=== PATIENT | male | born 1955 | race African-American/Black ===

== ENCOUNTER 2020-03-14 16:58 | Emergency (ER) | payer MEDICAID ==
[~2020-03-14] VITALS: Ht 175.3 cm; Wt 85.0 kg
[~2020-03-14 16:58] MED LIST: no home meds per pt
[2020-03-14 16:59] VITALS: BP 140/84
[2020-03-14] MEDS ORDERED: VISCOUS LIDOCAINE 2% 15 ML UDC PO ONE (17:45)
[2020-03-14] MEDS ORDERED: LIDOCAINE HCL/PF 1% 10 MG/ML 5ML VIAL IJ ONE (17:45)
[2020-03-14] MEDS ORDERED: AMOXICILLIN/POTASSIUM CLAVULANATE 500/125MG TAB PO ONE (18:15)
== END 2020-03-14 18:23 | disposition home or self-care (01) ==
LOC: ER 16:58
DX: K05.319 Chronic periodontitis, localized, unspecified severity (principal); E78.00 Pure hypercholesterolemia, unspecified; I10 Essential (primary) hypertension; Z98.890 Other specified postprocedural states
CPT/HCPCS: 99283; J3490

== ENCOUNTER 2022-02-09 11:23 | Inpatient (IN) | payer MEDICARE, MEDICAID ==
[~2022-02-09] VITALS: Ht 170.2 cm; Wt 83.9 kg
[2022-02-09 12:34] LABS: BASOPHILS % 0.7 % (0.0-2.0); EOSINOPHILS % 0.9 % (0.0-5.0); HEMATOCRIT. 45.2 % (42.0-52.0); HEMOGLOBIN. 15.1 g/dL (14.0-18.0); LYMPHOCYTES % 44.9 % (20.0-50.0); MEAN CORPUSCULAR HEMOGLOBIN 32.4 pg (28.0-32.0); MEAN CORPUSCULAR VOLUME 97.1 fL (80.0-94.0); MEAN PLATELET VOLUME 7.4 fl (7.4-10.4); MONOCYTES % 7.2 % (2.0-8.0); NEUTROPHILS % 46.3 % (40.0-76.0); RED BLOOD CELL COUNT 4.66 mill/uL (4.7-6.1); RED CELL DISTRIBUTION WIDTH 14.5 % (11.6-14.6)
[2022-02-09 12:35] LABS: PLATELET 202 x1000/uL (130-400)
[2022-02-09 12:47] LABS: CHLORIDE 111 mEq/L (98-107)
[2022-02-09 12:56] LABS: ETHANOL BLOOD < 10 mg/dL
[2022-02-09] MEDS: AMLODIPINE 10MG TABLET PO SCH (13:00)
[2022-02-09] MEDS ORDERED: GUAIFENESIN 200MG/10ML SUGAR FREE UDC PO PRN (13:00)
[2022-02-09] MEDS ORDERED: TRAMADOL 50MG TABLET PO PRN (13:00)
[2022-02-09] MEDS ORDERED: ACETAMINOPHEN 325MG TABLET PO PRN (13:00)
[2022-02-09] MEDS ORDERED: ONDANSETRON HCL 4MG/2ML INJ IV PRN (13:00)
[2022-02-09] MEDS ORDERED: DOCUSATE SODIUM 100MG CAPSULE PO PRN (13:00)
[2022-02-09] MEDS ORDERED: MAGNESIUM/ALUMINUM HYDROXIDE/SIMETHICONE 30ML UDC PO PRN (13:00)
[2022-02-09] MEDS ORDERED: NALOXONE HCL 0.4MG/ML VIAL IV PRN (13:45)
[2022-02-09] MEDS: ENOXAPARIN 40MG/0.4ML SYR SUBCUT SCH (14:00)
[2022-02-09 15:24] LABS: PROTHROMBIN TIME 11.2 sec (9.6-11.0)
[2022-02-09 20:30] VITALS: BP 107/65
[2022-02-09 20:40] VITALS: BP 107/65
[2022-02-10] VITALS: BP 140/66
[2022-02-10 07:58] VITALS: BP 119/74
[2022-02-10] MEDS: AMLODIPINE 10MG TABLET PO SCH (09:03)
[2022-02-10 12:00] VITALS: BP 127/80
[2022-02-10] MEDS: ENOXAPARIN 40MG/0.4ML SYR SUBCUT SCH (13:53)
[2022-02-10 15:02] VITALS: BP 129/60
== END 2022-02-10 15:45 | disposition home or self-care (01) | DRG 52 ==
LOC: ER 11:23 → 8WST 14:43
PROVIDERS: ADMIT Hospitalist; ATTEND Hospitalist
PROC: 5A1935Z Respiratory Ventilation, Less than 24 Consecutive Hours (ICD-10-PCS; principal; 2022-02-09)
DX: G93.41 Metabolic encephalopathy (principal); F29 Unspecified psychosis not due to a substance or known physiological condition; R47.81 Slurred speech; F70 Mild intellectual disabilities; E78.00 Pure hypercholesterolemia, unspecified; Z20.822 Contact with and (suspected) exposure to COVID-19; I10 Essential (primary) hypertension; K59.00 Constipation, unspecified; F17.210 Nicotine dependence, cigarettes, uncomplicated; Z86.73 Personal history of transient ischemic attack (TIA), and cerebral infarction without residual deficits
CPT/HCPCS: 36415; 70551; 71045; 80053; 80320; 84484; 85025; 87426; 93970; 97162; 99285; C9803; J1650; G0480

== ENCOUNTER 2022-09-03 11:32 | Emergency (ER) | payer MEDICARE, MEDICAID ==
[~2022-09-03] VITALS: Ht 170.2 cm; Wt 85.0 kg
[2022-09-03 12:32] LABS: BASOPHILS % 0.6 % (0.0-2.0); EOSINOPHILS % 0.5 % (0.0-5.0); HEMATOCRIT. 42.8 % (42.0-52.0); HEMOGLOBIN. 14.9 g/dL (14.0-18.0); LYMPHOCYTES % 36.3 % (20.0-50.0); MEAN CORPUSCULAR HEMOGLOBIN 33.3 pg (28.0-32.0); MEAN CORPUSCULAR VOLUME 95.7 fL (80.0-94.0); MEAN PLATELET VOLUME 6.7 fl (7.4-10.4); MONOCYTES % 8.4 % (2.0-8.0); NEUTROPHILS % 54.2 % (40.0-76.0); PLATELET 213 x1000/uL (130-400); RED BLOOD CELL COUNT 4.47 mill/uL (4.7-6.1); RED CELL DISTRIBUTION WIDTH 14.2 % (11.6-14.6)
[2022-09-03 12:42] LABS: CHLORIDE 107 mEq/L (98-107)
[2022-09-03 12:51] LABS: ETHANOL BLOOD < 10 mg/dL (-10)
[2022-09-03 13:59] LABS: CLARITY URINE CLEAR (CLEAR); COLOR URINE DARK YELLOW (YELLOW); KETONES URINE TRACE (NEGATIVE); LEUKOCYTE ESTERASE URINE NEGATIVE (NEGATIVE); NITRITE URINE NEGATIVE (NEGATIVE); OCCULT BLOOD URINE NEGATIVE (NEGATIVE); PH URINE 5.5 (4.5-8.0); PROTEIN URINE NEGATIVE (NEGATIVE); SPECIFIC GRAVITY URINE 1.019 (1.005-1.030)
[2022-09-03 14:19] LABS: *AMPHETAMINES SCREEN URINE NEGATIVE (NEGATIVE); *BARBITURATES SCREEN URINE NEGATIVE (NEGATIVE); *BENZODIAZEPINES SCREEN URINE NEGATIVE (NEGATIVE); *COCAINE SCREEN URINE NEGATIVE (NEGATIVE); CANNABINOID URINE SCREEN NEGATIVE (NEGATIVE); METHADONE URINE SCREEN NEGATIVE (NEGATIVE); OPIATES URINE SCREEN NEGATIVE (NEGATIVE); PHENCYCLIDINE URINE SCREEN NEGATIVE (NEGATIVE)
[2022-09-03 15:21] VITALS: BP 104/79
== END 2022-09-03 15:25 | disposition home or self-care (01) ==
LOC: ER 11:32 → CANBEDREQ 09-05 19:51
DX: R41.82 Altered mental status, unspecified (principal); E78.00 Pure hypercholesterolemia, unspecified; Z88.0 Allergy status to penicillin; Z98.890 Other specified postprocedural states; Z86.59 Personal history of other mental and behavioral disorders; Z91.048 Other nonmedicinal substance allergy status
CPT/HCPCS: 36415; 70450; 71045; 80053; 80305; 80320; 81003; 82140; 82962; 85025; 93005; 99285; Z7610; G0480

== ENCOUNTER 2023-11-29 15:22 | Emergency (ER) | payer MEDICARE, MEDICAID ==
[~2023-11-29] VITALS: Ht 172.7 cm; Wt 91.0 kg
[~2023-11-29 15:22] MED LIST changes: +DOCU250C14 PO; +FOLI-43 PO; +HALO10TA13 PO; +LEVE500T19 PO; +LISI10TA26 PO; +LORA10TA7 PO; +MELO-106 PO; +METO-396 PO; +PANT40TA51 PO; +PRAV40TA58 PO; -no home meds per pt
[2023-11-29 15:33] VITALS: O2SAT 98
[2023-11-29] MEDS ORDERED: SODIUM CHLORIDE 0.9% 1,000 ML IV ONE (16:45)
[2023-11-29] MEDS ORDERED: CEFTRIAXONE 1GM/50ML 50 ML IV NR (17:00)
[2023-11-29] MEDS: SODIUM CHLORIDE 0.9% 1000ML BAG (SEPSIS BOLUS) IV NR (17:14)
[2023-11-29] MEDS: LEVETIRACETAM 1000MG PREMIX 100 ML IV ONE (17:14)
[2023-11-29 17:43] LABS: BASOPHILS % 0.4 % (0.0-2.0); EOSINOPHILS % 0.5 % (0.0-5.0); HEMATOCRIT. 42.3 % (42.0-52.0); HEMOGLOBIN. 14.3 g/dL (14.0-18.0); LYMPHOCYTES % 46.9 % (20.0-50.0); MEAN CORPUSCULAR HEMOGLOBIN 33.1 pg (28.0-32.0); MEAN CORPUSCULAR HGB CONC 33.9 g/dL (31.0-37.0); MEAN CORPUSCULAR VOLUME 97.8 fL (80.0-94.0); MEAN PLATELET VOLUME 7.1 fl (7.4-10.4); MONOCYTES % 8.1 % (2.0-8.0); NEUTROPHILS % 44.1 % (40.0-76.0); PLATELET 199 x1000/uL (130-400); RED BLOOD CELL COUNT 4.32 mill/uL (4.7-6.1); WHITE BLOOD COUNT 6.3 x1000/uL (4.5-11.0)
[2023-11-29 17:46] LABS: CHLORIDE 107 mEq/L (98-107); POTASSIUM 3.4 mEq/L (3.5-5.1); SODIUM 142 mEq/L (136-145)
[2023-11-29 17:47] LABS: CALCIUM 10.4 mg/dL (8.7-10.4); CARBON DIOXIDE 28 mEq/L (21-32)
[2023-11-29 17:52] LABS: CREATININE 1.1 mg/dL (0.6-1.3); GLUCOSE 111 mg/dL (70-105); UREA NITROGEN BLOOD 29 mg/dL (9-23)
[2023-11-29 17:54] LABS: ACETAMINOPHEN 2 ug/mL (10-30)
[2023-11-29 18:27] LABS: LACTIC ACID 2.1 mmol/L (0.4-2.0)
[2023-11-29 18:28] LABS: ETHANOL BLOOD < 10 mg/dL (<10)
[2023-11-29 20:00] LABS: TROPONIN I HIGH SENSITIVITY 8 ng/L (3.0-53)
[2023-11-29 20:02] LABS: ALANINE AMINOTRANSFERASE 19 IU/L (10-49); ALBUMIN 4.6 g/dL (3.2-4.8); ASPARTATE AMINOTRANSFERASE 26 IU/L (<34); BILIRUBIN DIRECT 0.1 mg/dL (<=3.0); BILIRUBIN TOTAL 0.4 mg/dL (0.1-1.0); PROTEIN TOTAL 7.6 g/dL (6.0-8.3)
[2023-11-29 20:14] VITALS: BP 145/90; PULSE 95; RESP 18; TEMP 36.16956; O2SAT 98
== END 2023-11-29 20:47 | disposition home or self-care (01) ==
LOC: ER 15:22
DX: T67.5XXA Heat exhaustion, unspecified, initial encounter (principal); R55 Syncope and collapse; R04.0 Epistaxis; E86.0 Dehydration; E78.00 Pure hypercholesterolemia, unspecified; I10 Essential (primary) hypertension; F20.9 Schizophrenia, unspecified; Z98.890 Other specified postprocedural states; Z79.899 Other long term (current) drug therapy; Z88.0 Allergy status to penicillin; Z88.8 Allergy status to other drugs, medicaments and biological substances; X58.XXXA Exposure to other specified factors, initial encounter; Y93.89 Activity, other specified; Y92.89 Other specified places as the place of occurrence of the external cause; Y99.8 Other external cause status
CPT/HCPCS: 80076; 80048; 80307; 80329; 80320; 83605; 85025; 87040; 84484; 36415; 84145; 96365; 99284; J1953; J0696; J7030; G0480